=== PATIENT | male | born 1970 | race Caucasian/White ===

== ENCOUNTER 2023-03-11 00:06 | Observation (INO) | payer BC ==
[2023-03-11] MEDS ORDERED: Sodium Chloride 0.9% 10 ML Syringe FLUSH PRN (00:08)
[2023-03-11 00:27] LABS: BASOPHILS ABSOLUTE AUTO 0.02 10^3/uL (0.00-0.10); BASOPHILS PERCENT AUTO 0.3 % (0.0-1.0); EOSINOPHILS ABSOLUTE AUTO 0.23 10^3/uL (0.10-0.30); EOSINOPHILS PERCENT AUTO 3.2 % (1.0-3.0); HEMATOCRIT 41.8 % (40.0-52.0); HEMOGLOBIN 14.1 g/dL (13.0-17.0); LYMPHOCYTES ABSOLUTE AUTO 2.36 10^3/uL (1.00-4.00); LYMPHOCYTES PERCENT AUTO 32.5 % (20.0-40.0); MEAN CORPUSCULAR HEMOGLOBIN 30.1 pg (27.0-31.0); MEAN CORPUSCULAR HGB CONC 33.7 g/dL (32.0-36.0); MEAN CORPUSCULAR VOLUME 89.1 fL (82.0-92.0); MEAN PLATELET VOLUME 9.6 fL (7.4-10.4); MONOCYTES ABSOLUTE AUTO 0.59 10^3/uL (0.10-0.80); MONOCYTES PERCENT AUTO 8.1 % (2.0-8.0); NEUTROPHILS ABSOLUTE AUTO 4.07 10^3/uL (2.50-7.00); NEUTROPHILS PERCENT AUTO 55.9 % (50.0-70.0); PLATELET COUNT,PLT 227 10^3/uL (150-400); RED BLOOD CELL COUNT 4.69 10^6/uL (4.50-6.00); RED CELL DISTRIBUTION WIDTH 12.4 % (11.5-14.5); WHITE BLOOD CELL COUNT,WBC 7.27 10^3/uL (5.00-10.00)
[2023-03-11] MEDS: Aspirin 81 MG Tab.Chew PO ONE (00:28)
[2023-03-11] MEDS: Aspirin 81 MG Tab.Chew ONE (00:28)
[2023-03-11 00:49] LABS: ALBUMIN 3.56 g/dL (3.40-5.00); ANION GAP 15.8 mmol/L (5-15); BILIRUBIN TOTAL 0.5 mg/dL (0.2-1.0); CARBON DIOXIDE,CO2 25.4 mmol/L (21.0-32.0); CREATININE 0.9 mg/dL (0.51-1.17); EST CRCL DRUG DOSING (CG) 98.01 mL/min; POTASSIUM,K 3.2 mmol/L (3.5-5.1); PROTEIN TOTAL,TP 7.1 g/dL (6.4-8.2)
[2023-03-11] MEDS: predniSONE 20 MG Tab PO ONE (00:51)
[2023-03-11] MEDS: predniSONE 20 MG Tab ONE (00:52)
[2023-03-11] MEDS: Potassium Chloride 20 MEQ Tab.ER PO ONE (01:00)
[2023-03-11] MEDS ORDERED: Albuterol 8 GM Inhaler INH PRN (03:24)
[2023-03-11] MEDS ORDERED: Acetaminophen/oxyCODONE 325-5 MG Tab PO PRN (03:28)
[2023-03-11] MEDS ORDERED: Temazepam 15 MG Cap PO PRN (03:28)
[2023-03-11] MEDS ORDERED: Ondansetron 4 MG Tab.DIS PO PRN (03:28)
[2023-03-11] MEDS ORDERED: Acetaminophen 325 MG Tab PO PRN (03:28)
[2023-03-11 07:26] LABS: ANION GAP 13.5 mmol/L (5-15); CALCIUM 9.3 mg/dL (8.7-10.3); CARBON DIOXIDE,CO2 25.2 mmol/L (21.0-32.0); CREATININE 0.91 mg/dL (0.51-1.17); EST CRCL DRUG DOSING (CG) 96.93 mL/min; POTASSIUM,K 4.7 mmol/L (3.5-5.1)
[2023-03-11] MEDS: Hydrochlorothiazide 12.5 MG Cap PO SCH (08:36)
[2023-03-11] MEDS: metFORMIN 500 MG Tab.ER PO SCH (08:36)
[2023-03-11] MEDS: predniSONE 20 MG Tab PO SCH (08:36)
[2023-03-11] MEDS: Lisinopril 10 MG Tab PO SCH (08:36)
[2023-03-11] MEDS ORDERED: atorvaSTATin 10 MG Tab PO SCH (21:00)
== END 2023-03-11 13:21 | disposition home or self-care (01) ==
LOC: KA.ED 00:06 → KA.MS 02:15
PROVIDERS: ADMIT Nurse Practitioner Family; ATTEND Family Medicine
DX: R09.1 Pleurisy (principal); R42 Dizziness and giddiness; I10 Essential (primary) hypertension; E78.5 Hyperlipidemia, unspecified; R73.03 Prediabetes; Z20.822 Contact with and (suspected) exposure to COVID-19; Z79.899 Other long term (current) drug therapy
CPT/HCPCS: 36415; 71045; 80048; 80053; 83880; 84484; 85025; 85379; 93010; 99236-GT; 99284; 99285; A9270-GY; G0378; J7512; Q3014; U0002

== ENCOUNTER 2023-03-22 15:21 | Emergency (ER) | payer BC ==
[2023-03-22 15:48] LABS: BASOPHILS ABSOLUTE AUTO 0.02 10^3/uL (0.00-0.10); BASOPHILS PERCENT AUTO 0.2 % (0.0-1.0); EOSINOPHILS ABSOLUTE AUTO 0.22 10^3/uL (0.10-0.30); EOSINOPHILS PERCENT AUTO 2.7 % (1.0-3.0); HEMATOCRIT 44.4 % (40.0-52.0); HEMOGLOBIN 14.7 g/dL (13.0-17.0); IMMATURE GRAN ABSOLUTE AUTO 0.02 10^3/uL (0.00-0.50); IMMATURE GRAN PERCENT AUTO 0.2 % (0.0-5.0); LYMPHOCYTES ABSOLUTE AUTO 2.62 10^3/uL (1.00-4.00); LYMPHOCYTES PERCENT AUTO 31.9 % (20.0-40.0); MEAN CORPUSCULAR HEMOGLOBIN 30.2 pg (27.0-31.0); MEAN CORPUSCULAR HGB CONC 33.1 g/dL (32.0-36.0); MEAN CORPUSCULAR VOLUME 91.2 fL (82.0-92.0); MEAN PLATELET VOLUME 9.7 fL (7.4-10.4); MONOCYTES ABSOLUTE AUTO 0.62 10^3/uL (0.10-0.80); MONOCYTES PERCENT AUTO 7.6 % (2.0-8.0); NEUTROPHILS ABSOLUTE AUTO 4.71 10^3/uL (2.50-7.00); NEUTROPHILS PERCENT AUTO 57.4 % (50.0-70.0); PLATELET COUNT,PLT 227 10^3/uL (150-400); RED BLOOD CELL COUNT 4.87 10^6/uL (4.50-6.00); RED CELL DISTRIBUTION WIDTH 12.6 % (11.5-14.5); WHITE BLOOD CELL COUNT,WBC 8.21 10^3/uL (5.00-10.00)
[2023-03-22 16:00] LABS: ALBUMIN 3.89 g/dL (3.40-5.00); ANION GAP 11.4 mmol/L (5-15); BILIRUBIN TOTAL 0.8 mg/dL (0.2-1.0); CALCIUM 9.4 mg/dL (8.7-10.3); CARBON DIOXIDE,CO2 31.6 mmol/L (21.0-32.0); EST CRCL DRUG DOSING (CG) 88.21 mL/min; PROTEIN TOTAL,TP 7.6 g/dL (6.4-8.2)
[2023-03-22] MEDS ORDERED: Cyclobenzaprine 10 MG Tab PO ONE (17:05)
== END 2023-03-22 17:24 | disposition home or self-care (01) ==
LOC: KA.ED 15:21
DX: R42 Dizziness and giddiness (principal); R51.9 Headache, unspecified; Z79.899 Other long term (current) drug therapy; Z90.49 Acquired absence of other specified parts of digestive tract
CPT/HCPCS: 36415; 70450; 80053; 85025; 99284; A9270; 93005; 93010